=== PATIENT | male | born 1995 | race Asian ===

== ENCOUNTER 2018-02-03 06:37 | Emergency (ER) | payer BC ==
[2018-02-03 07:10] LABS: MUDS CUTOFF CONCENTRATIONS CUTOFF CONC BELOW:
[2018-02-03 07:19] LABS: BASOPHILS % (AUTO) 0.9 %; EOSINOPHILS % (AUTO) 1.2 %; HGB - HEMOGLOBIN 15.3 g/dL (14.0-18.0); LYMPHOCYTES # (AUTO) 1.4 10^3/uL (1.5-3.5); LYMPHOCYTES % (AUTO) 34.7 %; MEAN CORPUSCULAR HEMOGLOBIN 31.5 pg (27.0-31.0); MEAN CORPUSCULAR HGB CONC 33.3 g/dL (32.0-36.0); MEAN CORPUSCULAR VOLUME 94.4 fL (80.0-94.0); MEAN PLATELET VOLUME 7.3 fL (7.4-11.4); MONOCYTES # (AUTO) 0.3 10^3/uL (0.0-1.0); NEUTROPHILS # (AUTO) 2.3 10^3/uL (1.5-6.6); NEUTROPHILS % (AUTO) 56.2 %; PLT - PLATELET COUNT 214 10^3/uL (130-450); RED BLOOD COUNT 4.87 10^6/uL (4.70-6.10); RED CELL DISTRIBUTION WIDTH 12.7 % (12.0-15.0)
[2018-02-03 07:24] LABS: AMPHETAMINE SCREEN,URINE NEGATIVE (NEGATIVE); BENZODIAZEPINES SCREEN, URINE NEGATIVE (NEGATIVE); COCAINE SCREEN URINE NEGATIVE (NEGATIVE); METHADONE SCREEN, URINE NEGATIVE (NEGATIVE); METHAMPHETAMINES SCREEN, URINE NEGATIVE (NEGATIVE); OPIATE SCREEN, URINE NEGATIVE (NEGATIVE); OXYCODONE SCREEN, URINE NEGATIVE (NEGATIVE); PROPOXYPHENE SCREEN, URINE NEGATIVE (NEGATIVE); TRICYCLIC ANTIDEPRESSANT,URINE NEGATIVE (NEGATIVE)
[2018-02-03 07:40] LABS: ACETAMINOPHEN < 10 ug/mL (10-30); ALBUMIN 4.6 g/dL (3.2-5.5); ALBUMIN/GLOBULIN RATIO 1.4 (1.0-2.2); ALKALINE PHOSPHATASE 87 IU/L (42-121); ALT ALANINE AMINOTRANSFERASE 22 IU/L (10-60); AST ASPARTATE AMINOTRANSFERASE 22 IU/L (10-42); BILIRUBIN,TOTAL 0.6 mg/dL (0.2-1.0); BUN - BLOOD UREA NITROGEN 12 mg/dL (6-20); CALCIUM 9.2 mg/dL (8.5-10.3); CARBON DIOXIDE - CO2 25 mmol/L (21-32); CHLORIDE 103 mmol/L (101-111); CREATININE 0.8 mg/dL (0.6-1.2); GFR - MDRD 121 (>89); GLUCOSE 104 mg/dL (70-100); LIPASE 31 U/L (22-51); SALICYLATE < 6.0 mg/dL; SODIUM 137 mmol/L (135-145); TOTAL PROTEIN 7.8 g/dL (6.7-8.2)
--- NOTE | 2018-02-03 08:31 | ED Physician Documentation ---
PD HPI MHE - Stated complaint Stated Complaint: SI - Chief complaint Chief Complaint: MHE - History obtained from History obtained from: Patient - History of Present Illness Primary symptom: Suicidal ideation, Depression. No: Suicide attempt, Self harm - cut, Self harm - OD, Self harm - other, Homicidal ideation, Psychosis, Manic, Aggressive behavior Severity Comments: moderate Contributing factors: No: Work, Substance abuse - ETOH, Substance abuse - drugs - Additional information Additional information: 22-year-old male was brought in by the [employer]se[employer] Operator for a mental health evaluation. The patient has been experiencing increased depression and has intermittent thoughts of suicide. The patient states that he could not actually go through with harming himself. The patient has mainly had intermittent increasing thoughts of suicidal ideations. The patient denies any actual self-harm, the patient denies substance abuse or any cutting behavior. The patient denies any acute medical complaints. No specific contributing factors. Currently, the patient is denying suicidal or homicidal ideations. Review of Systems Constitutional: denies: Fever Eyes: denies: Loss of vision Ears: denies: Ear pain Throat: denies: Swollen tonsils Cardiac: denies: Chest pain / pressure Respiratory: denies: Cough GI: denies: Abdominal Pain : denies: Dysuria Skin: denies: Rash Musculoskeletal: denies: Neck pain Neurologic: denies: Generalized weakness Psychiatric: reports: Depressed. denies: Homicidal, Hallucinations, Delusions, Anxiety, Insomnia Immunocompromised: denies: Chemotherapy PD PAST MEDICAL HISTORY - Past Medical History Neuro: None Psych: Depression - Past Surgical History Past Surgical History: No - Allergies Allergies/Adverse Reactions: Allergies Allergy/AdvReac Type Severity Reaction Status Date / Time No Known Drug Allergies Allergy Verified 02/03/18 07:03 - Social History Does the pt smoke?: No Smoking Status: Never smoker Does the pt drink ETOH?: No Does the pt have substance abuse?: No - Immunizations Immunizations are current?: Yes PD ED PE NORMAL - General General: Alert and oriented X 3, No acute distress - HEENT HEENT: Atraumatic, PERRL, EOMI, Ears normal - Cardiac Cardiac: RRR, Strong equal pulses - Respiratory Respiratory: No respiratory distress - Abdomen Abdomen: Soft, Non tender - Derm Derm: Normal color - Extremities Extremities: No deformity - Neuro Neuro: Alert and oriented X 3, Normal speech PD ED PE EXPANDED - Psych Psych: Depressed. No: Intoxicated / AOB, Homicidal, Withdrawn, Poor eye contact, Non verbal, Anxious, Combative, Manic, Pressured speech, Flight of ideas, Auditory hallucinations, Tactile hallucinations Results - Vitals Vitals: Vital Signs - 24 hr 02/03/18 06:56 Temperature 36.4 C L Heart Rate 74 Respiratory 16 Rate Blood Pressure 141/99 H O2 Saturation 99 Oxygen O2 Source Room air - Labs Labs: Laboratory Tests 02/03/18 02/03/18 02/03/18 06:50 07:10 07:10 WBC 4.0 L RBC 4.87 Hgb 15.3 Hct 46.0 MCV 94.4 H MCH 31.5 H MCHC 33.3 RDW 12.7 Plt Count 214 MPV 7.3 L Neut # (Auto) 2.3 Lymph # (Auto) 1.4 L [place] # (Auto) 0.3 Eos # (Auto) 0.0 Baso # (Auto) 0.0 Absolute Nucleated RBC 0.00 Nucleated RBC % 0.0 Sodium 137 Potassium 3.7 Chloride 103 Carbon Dioxide 25 Anion Gap 9.0 BUN 12 Creatinine 0.8 Estimated GFR (MDRD) 121 Glucose 104 H Calcium 9.2 Total Bilirubin 0.6 AST 22 ALT 22 Alkaline Phosphatase 87 Total Protein 7.8 Albumin 4.6 Globulin 3.2 Albumin/Globulin Ratio 1.4 Lipase 31 Salicylates < 6.0 Urine Opiates Screen NEGATIVE Ur Oxycodone Screen NEGATIVE Urine Methadone Screen NEGATIVE Ur Propoxyphene Screen NEGATIVE Acetaminophen < 10 L Ur Barbiturates Screen NEGATIVE Ur Tricyclics Screen NEGATIVE Ur Phencyclidine Scrn NEGATIVE Ur Amphetamine Screen NEGATIVE U Methamphetamines Scrn NEGATIVE U Benzodiazepines Scrn NEGATIVE Urine Cocaine Screen NEGATIVE U Cannabinoids Screen NEGATIVE Ethyl Alcohol < 5.0 PD MEDICAL DECISION MAKING - ED course ED course: The patient was seen and evaluated by tele-psychiatry. The patient contracts for safety and is appropriate for discharge and ongoing outpatient management. I discussed things with the patient and he is comfortable this plan. He will follow-up with his primary care physician in [facility]. I discussed warning signs and recommended returning to the emergency department immediately for any worsening or concerns. Departure - Departure Disposition: 01 Home, Self Care Clinical Impression: Suicidal ideations Condition: Good Instructions: ED Stress React, ED Depression Comments: Please follow-up with your primary care physician so they can arrange for a referral to psychiatry and And possibly to therapy. Please return to the emergency department immediately for any worsening or any concerns.
--- NOTE | 2018-02-03 09:03 | TELEPSYCH PHYS NOTE ---
Telepsych Note - CHIEF COMPLAINT/HX OF PRESENT ILLNESS Cheif Complaint and History of Present Illness: ID/CC: This is a 22 yo male brought by c increasing depression and SI. HPI: Per ER doc [place] Went back to his car and fell asleep. found him and brought him to the ED due to concerns about SI. He indicates that his roommate notified the of his whereabouts. He indicates fleeting thoughts of suicide and denies current SI. He states that he has never attempted suicide before although he has flirted c the idea in the past. He has no access to firearms. He indicates that he gets mood swings but denies any urrent precipitating stresses. Sleep has been OK. Appetite has been generally good and he denies wgt loss. Energy level is OK. No history of psychotic sx. He states that concentration has been fine. Denies any HI. - SI/HI/SELF HARM SI/HI/SELF HARM (CURRENT OR HISTORY OF):: SI SI/HI/Self Harm Text (Current or History of):: above - PSYCHIATRIC HX/TREATMENT HX Psychiatric: None, Depression Psychiatric/Treatment Hx Other: No prior psychiatric treatment. - MEDICAL HX Does the pt have a hx of MRSA?: No Neurological History: None Is Patient ?: No - ALLERGIES Allergies (as last confirmed): Allergies Allergy/AdvReac Type Severity Reaction Status Date / Time No Known Drug Allergies Allergy Verified 02/03/18 07:03 - FAMILY PSYCH/SUICIDE/SOCIAL HX-MENTAL Family - Suicide - Social Hx and Mental Status Exam: Has older sister, age 27. Has distant relationship c her. Denies family history of diagnosed psychiatric problems, substance abuse, suicidal behavior. Pt lives c several roommates, they are supportive. He works for [employer] and likes his job. MSE: Pt is a pleasant and cooperative WM. He is alert and oriented. Mood is slightly depressed. Judgement is intact. Intellect is above average. Insight is generally good. Memory is intact. Thought process is goal directed, thought content shows no indication of SI, HI, hallucinations or delusions. Affect generally shows good range. - TREATMENT/PHARMACOLOGICAL RECOMMENDATION Treatment - Pharmacological - Therapy Recommendations: Not clear that he will respond to antidepressant medication although a psychiatric evaluation might be considered. He should be given crisis line information and he is agreeable to following up c conselling through work which offers free services. There is some increased risk related to his depression but there is no hstory of suicide attempts, he has social supports throgh family and roommates and is future oriented in terms of his career a which he has been quite successful. 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 Will clear for discharge c OP counselling for follow up. - TIME SPENT & PROVIDER LOCATION Telepsych consultation conducted via videoconferencing: Yes List names and roles of persons who participated in consult: Mitzy Martínez MD. Stacy Smith pt Telepsych Provider Location: Mitzy Polk MD Time Telepsych consult began: 11:00 Time Telepsych consult completed: 11:40
[2018-02-03 10:11] VITALS: BP 130/89
== END 2018-02-03 10:52 | disposition home or self-care (01) ==
LOC: ED 06:37
DX: R45.851 Suicidal ideations (principal); F32.9 Major depressive disorder, single episode, unspecified
CPT/HCPCS: 36415; 80053; 80306; 80307; 80320; 80329; 83690; 85025; 99283; 99284; G0425; Q3014